=== PATIENT | female | born 1940 | race African-American/Black ===

== ENCOUNTER → 2017-11-19 | Outpatient (CLI) | payer MEDICARE | END | disposition home or self-care (01) | LOC: ECHO 10:17 | DX: I08.1 Rheumatic disorders of both mitral and tricuspid valves (principal); I42.9 Cardiomyopathy, unspecified; I27.20 Pulmonary hypertension, unspecified | CPT/HCPCS: 93306 ==

== ENCOUNTER → 2020-02-07 | Outpatient (CLI) | payer MEDICARE ==
[2015-10-20 10:54] VITALS: BP 108/69
[~2020-02-07] MED LIST: ASPI-482 PO; ASPI-612 PO; ATOR40TA59 PO; FURO40TA4 PO; LISI2.5T PO; METO25TA4 PO; POTA10TA12 PO
--- NOTE | 2020-02-07 14:20 | CARD ---
MR#: [id number] Date of Study: 02/07/2020 Ordering Physician: DELLA JUAN, Referring Physician: DELLA JUAN, Tech: Mare Givens APPROVED REPORT EXAM: Two-dimensional and M-mode echocardiogram with Doppler and color Doppler. Other Information Quality : AverageHR: 56bpm INDICATION Cardiomyopathy RISK FACTORS Hyperlipidemia 2D DIMENSIONS RVDd2.6 (2.9-3.5cm)Left Atrium(2D)3.4 (1.6-4.0cm) IVSd1.1 (0.7-1.1cm)Aortic Root(2D)3.1 (2.0-3.7cm) LVDd5.5 (3.9-5.9cm)LVOT Diameter1.9 (1.8-2.4cm) PWd1.3 (0.7-1.1cm)LVDs4.7 (2.5-4.0cm) FS (%) 14.7 %SV46.1 ml Aortic Valve AoV Peak Martin.127.4cm/sAoV VTI29.6cm AO Peak GR.6.5mmHgLVOT Peak Martin.62.9cm/s LVOT VTI 14.55cmAO Mean GR.3mmHg MATY (VMAX)1.44gp1QJU (VTI)1.44cm2 Mitral Valve MV E Nuoyklkt31.6cm/sMV E Peak Gr.109mmHg MV DECEL [id number] A Iiywwous44.1cm/s MV E Mean Gr.1mmHgMV [id number] E/A Ratio0.8MVA (PHT)2.08cm2 TDI E/Lateral E'9.1E/Medial E'10.6 Pulmonary Valve PV Peak Ozissjjy46.7cm/sPV Peak Grad.1mmHg Tricuspid Valve TR P. Mwwltyip277vt/sRAP [id number] TR Peak Gr.67dvLyBZCL97duHx LEFT VENTRICLE The Left Ventricle is mildly dilated. There is mild concentric left ventricular hypertrophy. The syst olic function is moderately to severely impaired. The Ejection Fraction is estimated at 30%. There is moderate to severe global hypokinesis of the left ventricle. Transmitral Doppler flow pattern is Gra de II-pseudonormal filling dynamics. RIGHT VENTRICLE The right ventricle is normal size. There is normal right ventricular wall thickness. The right ventr icular systolic function is normal. ATRIA The left atrium is moderately dilated. The right atrium size is normal. The interatrial septum is int act with no evidence for an atrial septal defect or patent foramen ovale as noted on 2-D or Doppler i maging. AORTIC VALVE The aortic valve is normal in structure and function. Doppler and Color Flow revealed trace aortic re gurgitation. There is no significant aortic valvular stenosis. Calculated aortic valve area is 1.38 c m2 with maximum pressure gradient of 8 mmHg and mean pressure gradient of 3 mmHg. MITRAL VALVE The mitral valve is normal in structure and function. There is no evidence of mitral valve prolapse. There is no mitral valve stenosis. Doppler and Color-flow revealed moderate mitral regurgitation. TRICUSPID VALVE The tricuspid valve is normal in structure and function. Doppler and Color Flow revealed trace tricus pid regurgitation with an estimated PAP of 25 mmHg. There is no tricuspid valve stenosis. PULMONIC VALVE The pulmonary valve is normal in structure and function. Doppler and Color Flow revealed trace pulmon ic valvular regurgitation. GREAT VESSELS The aortic root is normal in size. The IVC is normal in size and collapses >50% with inspiration. PERICARDIAL EFFUSION There is no evidence of significant pericardial effusion. Critical Notification Critical Value: No <Conclusion> The Left Ventricle is mildly dilated. The systolic function is moderately to severely impaired. The Ejection Fraction is estimated at 30%. There is moderate to severe global hypokinesis of the left ventricle. There is mild concentric left ventricular hypertrophy. There is no significant aortic valvular stenosis. Calculated aortic valve area is 1.38 cm2 with maximum pressure gradient of 8 mmHg and mean pressure g radient of 3 mmHg. Doppler and Color Flow revealed trace aortic regurgitation. Doppler and Color-flow revealed moderate mitral regurgitation. Doppler and Color Flow revealed trace tricuspid regurgitation with an estimated PAP of 25 mmHg. Signed by : Luke Rodriguez MD Electronically Approved : 02/07/2020 14:20:22
== END | disposition home or self-care (01) ==
LOC: ECHO 10:25
PROVIDERS: ATTEND Internal Medicine Cardiovascular Disease
DX: I34.0 Nonrheumatic mitral (valve) insufficiency (principal); I42.9 Cardiomyopathy, unspecified; I51.7 Cardiomegaly
CPT/HCPCS: 93306